=== PATIENT | female | born 1980 | race Caucasian/White ===

== ENCOUNTER 2021-04-06 16:22 | Emergency (ER) | payer OTHER, MEDICAID ==
[~2021-04-06] VITALS: Ht 160 cm; Wt 97.6 kg
[2021-04-06 16:22] VITALS: BP 152/93
--- NOTE | 2021-04-06 16:30 | NUR ---
pt to pastor merlos via a w/c
[2021-04-06] MEDS ORDERED: HYDROcodone/APAP 5/325 MG 1 TAB TAB PO ONE (17:00)
[2021-04-06] MEDS ORDERED: HYDROcodone/APAP 5/325 MG 1 TAB TAB ONE (18:45)
[2021-04-06] MEDS ORDERED: ACET-9525 PO (20:25)
[2021-04-06 20:52] VITALS: BP 152/93
--- NOTE | 2021-04-06 20:52 | NUR ---
Patient discharged with v/s stable. Written and verbal after care instructions given and explained. Patient alert, oriented and verbalized understanding of instructions. Ambulatory with steady gait. All questions addressed prior to discharge. ID band removed. Patient advised to follow up with PMD. Rx of HYDROCODONE/ACETAMINOPHEN given. Patient educated on indication of medication including possible reaction and side effects. Opportunity to ask questions provided and answered.
== END 2021-04-06 20:52 | disposition home or self-care (01) ==
LOC: MED 16:22
DX: S39.012A Strain of muscle, fascia and tendon of lower back, initial encounter (principal); Z88.5 Allergy status to narcotic agent; V98.8XXA Other specified transport accidents, initial encounter; Y93.89 Activity, other specified; Y92.89 Other specified places as the place of occurrence of the external cause; Y99.8 Other external cause status
CPT/HCPCS: 72131; 81025; 99284